=== PATIENT | male | born 1985 | race Caucasian/White ===

== ENCOUNTER 2019-09-05 12:37 | Emergency (ER) | payer SELFPAY ==
[~2019-09-05] VITALS: Ht 175.3 cm; Wt 101.6 kg
[~2019-09-05 12:37] MED LIST: AMOX600S8 PO; DEXAMETHASONE PO; FEXO30TA PO; HYDR473S16 PO; TETRACAINE LOLLIPOPS
--- NOTE | 2019-09-05 12:53 | ED Upper Extremity ---
General Chief Complaint: Upper Extremity Stated Complaint: L HAND FINGER INJ Source: patient Exam Limitations: no limitations History of Present Illness Date Seen by Provider: Sep 05, 2019 Time Seen by Provider: 12:52 Initial Comments Patient daughter slammed the pinky finger into a door, tetanus is up-to-date, there is a nail avulsion Onset: just prior to arrival Severity: moderate Pain/Injury Location: left 5th finger Method of Injury: direct blow Modifying Factors: Worse With Movement Allergies and Home Medications Allergies Coded Allergies: No Known Drug Allergies (Unverified , 03/05/13) Home Medications Amoxicillin/Potassium Clav 600 Mg/5 Ml Susp, 1 TSP PO BID, (Reported) Cephalexin 500 Mg Capsule, 500 MG PO TID Prescribed by: JOSEPH CASE on 09/05/19 1319 Fexofenadine Hcl 30 Mg Tab.rapdis, 1 EA PO BID, (Reported) Hydrocodone Bit/Acetaminophen 480 Ml Solution, 3 TSP PO Q4HR PRN, (Reported) Hydrocodone/Acetaminophen 1 Each Tablet, 1 TAB PO Q4-6HR Prescribed by: JOSEPH CASE on 09/05/19 131 [Dexamethasone] , 2.5 TSP PO DAILY, (Reported) Patient Home Medication List Home Medication List Reviewed: Yes Review of Systems Constitutional: see HPI EENTM: see HPI Respiratory: no symptoms reported Cardiovascular: no symptoms reported Genitourinary: no symptoms reported Musculoskeletal: see HPI Skin: no symptoms reported Psychiatric/Neurological: No Symptoms Reported Past Rpyanht-Kfpyad-Gicirj Hx Past Medical History Reproductive Disorders: No Physical Exam Vital Signs Vital Signs - First Documented 09/05/19 12:40 Temp 36.8 Pulse 69 Resp 17 B/P (MAP) 130/83 (99) Pulse Ox 99 O2 Delivery Room Air Capillary Refill : Height, Weight, BMI Height: '" Weight: 213lbs. oz. 96.797004dc; BMI Method: General Appearance: WD/WN, no apparent distress HEENT: PERRL/EOMI, normal ENT inspection Respiratory: no respiratory distress, no accessory muscle use Shoulder: normal inspection, non-tender Elbow/Forearm: normal inspection, non-tender Wrist: Yes normal inspection, Yes non-tender Hand: Left, laceration (there is a nail avulsion with nail bed laceration) Neurologic/Tendon: normal sensation, normal motor functions Neurologic/Psychiatric: alert, normal mood/affect, oriented x 3 Skin: normal color, warm/dry Progress/Results/Core Measures Results/Orders My Orders Orders - JOSEPH CASE APRN Lidocaine 1% Inj 20 Ml (Xylocaine 1% Inj (09/05/19 13:00) Cephalexin Capsule (Keflex Capsule) (09/05/19 13:00) Medications Given in ED Current Medications Medications Dose Ordered Sig/Marjorie Route Start Time Stop Time Status Last Admin Dose Admin Cephalexin HCl 500 mg ONCE ONCE PO 09/05/19 13:00 09/05/19 13:01 DC 09/05/19 12:59 500 MG Lidocaine HCl 2 ml ONCE ONCE INJ 09/05/19 13:00 09/05/19 13:01 DC 09/05/19 13:01 2 ML Vital Signs/I&O 09/05/19 09/05/19 12:40 13:35 Temp 36.8 36.8 Pulse 69 74 Resp 17 18 B/P (MAP) 130/83 (99) 130/83 (99) Pulse Ox 99 99 O2 Delivery Room Air Room Air Departure Communication (Admissions) 1315-procedure note: Digital block was done using 3 mL of 1% lidocaine without epinephrine, tourniquet was then applied for hemostasis. The nailbed laceration was then covered with glue. The proximal nail fold was then splinted with a fingernail shaped piece of oral from suture material packet. This was held in place with 2 simple interrupted sutures size 5-0 Prolene. Xeroform was then applied and tube gauze then applied. I discussed with him that x-ray imaging could be skipped in an attempt to save cost, a fractured phalanx will not mold insert changer. Impression Primary Impression: Nailbed laceration, finger Additional Impression: Nail avulsion Disposition: HOME, SELF-CARE Condition: Stable Departure-Patient Inst. Decision time for Depature: 13:16 Referrals: YAMILKA WOODSON MD (PCP) Primary Care Physician Patient Instructions: NAIL INJURY, Nail Avulsion Add. Discharge Instructions: 1. Pain medication and antibiotics as directed. Leave this dressing in place on for the rest of today, taken off tomorrow evening by gently pulling on it. Try not to pull the foil fingernail splint off. Tomorrow evening you can wrap this with a simple Band-Aid and then applied a metal splint provided. Return to ER in about 5-7 days to have the splint removed. All discharge instructions reviewed with patient and/or family. Voiced understanding. Scripts Hydrocodone/Acetaminophen (HYDROcodone/APAP 5 MG/325 MG TAB) 1 Each Tablet 1 TAB PO Q4-6HR for Pain MDD 10 TABS for 7 Days, #10 TAB Prov: JOSEPH CASE APRN 09/05/19 Cephalexin (Keflex) 500 Mg Capsule 500 MG PO TID, #15 CAP Prov: JOSEPH CASE APRN 09/05/19 JOSEPH CASE APRN Sep 05, 2019 12:53
[2019-09-05] MEDS ORDERED: CEPHALEXIN 250 MG (KEFLEX) CAP PO ONE (13:00)
[2019-09-05] MEDS ORDERED: LIDOCAINE 1% INJ 20 ML 20 ML VIAL INJ ONE (13:00)
[2019-09-05] MEDS ORDERED: CEPH-507 PO (13:19)
[2019-09-05] MEDS ORDERED: HYDR-4226 PO (13:19)
[2019-09-05 13:35] VITALS: BP 130/83
== END 2019-09-05 13:35 | disposition home or self-care (01) ==
LOC: EDUNIT# 12:37 → ER 12:38
DX: S61.317A Laceration without foreign body of left little finger with damage to nail, initial encounter (principal); W22.8XXA Striking against or struck by other objects, initial encounter
CPT/HCPCS: 12001; 29130

== ENCOUNTER 2019-09-14 16:17 | Emergency (ER) | payer SELFPAY ==
[~2019-09-14] VITALS: Ht 175 cm; Wt 101.0 kg
[~2019-09-14 16:17] MED LIST changes: +CEPH-507 PO; +HYDR-4226 PO
[2019-09-14 16:46] VITALS: BP 0/0
--- NOTE | 2019-09-14 16:46 | NUR ---
PT DISCHARGED TO HOME W/ NO QUESTIONS.
== END 2019-09-14 16:46 | disposition home or self-care (01) ==
LOC: EDUNIT# 16:17 → ER 16:20
DX: S61.217D Laceration without foreign body of left little finger without damage to nail, subsequent encounter (principal); X58.XXXD Exposure to other specified factors, subsequent encounter

== ENCOUNTER 2020-11-04 05:40 | Outpatient (CLI) | payer SELFPAY ==
[~2020-11-04] VITALS: Ht 177.8 cm; Wt 104.9 kg
[2020-11-04] MEDS ORDERED: TADA10TA14 PO (09:42)
[2020-11-04] MEDS ORDERED: HYDR-3584 PO (09:42)
[2020-11-04] MEDS ORDERED: BUPR-42 PO (09:42)
[2020-11-05] MEDS ORDERED: HYDR-3817 PO (09:50)
== END 2020-11-04 10:00 | disposition home or self-care (01) ==
LOC: PREOP 05:40
PROVIDERS: ATTEND Surgery
DX: Z01.818 Encounter for other preprocedural examination (principal)

== ENCOUNTER 2020-11-05 09:09 | Day surgery (SDC) | payer OTHER ==
[~2020-11-05] VITALS: Ht 177.8 cm; Wt 104.9 kg
[2020-11-05] VITALS (10 sets, daily range): BP systolic 110–139; BP diastolic 57–79
[~2020-11-05 09:09] MED LIST changes: +BUPR-42 PO; +HYDR-3584 PO; +TADA10TA14 PO
[2020-11-05] MEDS ORDERED: ceFAZolin 2 GM IV Premixed 50 ML IV ONE (09:30)
[2020-11-05] MEDS ORDERED: LACTATED RINGERS 1,000 ML IV PRN (09:30)
--- NOTE | 2020-11-05 09:48 | Progress Note-Pre Operative ---
Pre-Operative Progress Note H&P Reviewed The H&P was reviewed, patient examined and no changes noted. Date Seen by Provider: November 05, 2020 Time Seen by Provider: 09:45 Date H&P Reviewed: November 05, 2020 Time H&P Reviewed: 09:40 Pre-Operative Diagnosis: Perianal abscess, possible fistula ALINA THOMAS APRN November 05, 2020 09:48
[2020-11-05] MEDS ORDERED: HYDR-3817 PO (09:50)
--- NOTE | 2020-11-05 09:51 | Discharge Inst-Surgical ---
D/C Lap Instructions-KIDO Reconcile Patient Problems Problems Reviewed?: Yes New, Converted, or Re-Newed RX: RX on Chart Follow Up Appt in 2 weeks Activity as tolerated No driving for 24 hours No driving while on pain medications Incentive Spirometry use every 2 hours while awake Regular Diet Symptoms to Report: Fever over 101 degree F, Nausea/Vomiting Infection Signs and Symptoms to report: Increased redness, Foul odor of wound, Increased drainage Bathing instructions: May shower Operative Area Clean/Dry; Keep incision clean/dry If any problems/questions: Contact your physician or go to Emergency Room ALINA THOMAS APRN November 05, 2020 09:50
[2020-11-05] MEDS ORDERED: ONDANSETRON 4 MG/2 ML (SDV) Z0FRAN IVP PRN (10:00)
[2020-11-05] MEDS ORDERED: ACETAMINOPHEN 325 MG TABLET PO PRN (10:00)
[2020-11-05] MEDS ORDERED: HYDROcodone/APAP 5 MG/325 MG (LORTAB) TAB PO ONE (10:00)
[2020-11-05] MEDS ORDERED: morphine INJ 10 MG/ML 1ML (SYR OR VIAL) IVP PRN (10:00)
[2020-11-05] MEDS ORDERED: LIDOCAINE PF 2% 5 ML (XYLOCAINE) VIAL ONE (10:49)
[2020-11-05] MEDS ORDERED: fentaNYL INJ 100 MCG/2 ML AMP ONE (10:49)
[2020-11-05] MEDS ORDERED: ONDANSETRON 4 MG/2 ML (SDV) Z0FRAN ONE (10:49)
[2020-11-05] MEDS ORDERED: proPOfol 200 MG/20 ML (DIPRIVAN) VIAL IV ONE (10:49)
[2020-11-05] MEDS ORDERED: MIDAZOLAM 2 MG/2 ML (VERSED) VIAL ONE (10:49)
[2020-11-05] MEDS ORDERED: SEVOFLURANE (ULTANE) 15 ML INHAL SOLN ONE ×4 (10:50→12:00)
[2020-11-05] MEDS ORDERED: LIDOCAINE/EPI 1%-1:100,000 (XYLOCAINE) 20ML ONE ×2 (11:08→11:09)
--- NOTE | 2020-11-05 12:07 | Progress Note-Post Operative ---
Post-Operative Progess Note Surgeon (s)/Cloth Tearer (s) Surgeon TAMAR GUTIERREZ MD Cloth Tearer: ama johnson Pre-Operative Diagnosis Perianal abscess, possible fistula Post-Operative Diagnosis superficial left lateral fistula Procedure & Operative Findings Date of Procedure 11/05/20 Procedure Performed/Findings anal exam under anesthesia, fistulotomy Anesthesia Type general LMA Estimated Blood Loss Estimated blood loss (mL): minimal Specimens/Packing Specimens Removed none TAMAR GUTIERREZ MD November 05, 2020 12:07
--- NOTE | 2020-11-05 12:58 | Anesthesia-General Post-Op ---
General Patient Condition Mental Status/LOC: Same as Preop Cardiovascular: Satisfactory Nausea/Vomiting: Absent Respiratory: Satisfactory Pain: Controlled Complications: Absent Post Op Complications Complications None Follow Up Care/Instructions Patient Instructions None needed. Anesthesia/Patient Condition Patient Condition Patient is doing well, no complaints, stable vital signs, no apparent adverse anesthesia problems. No complications reported per nursing. RAMY ALBERTO CRNA November 05, 2020 12:57
--- NOTE | 2020-11-05 19:19 | OPERATIVE REPORT ---
DATE OF SERVICE: 11/05/2020 ATTENDING PRIMARY CARE PHYSICIAN: Sole Garcia MD PREOPERATIVE DIAGNOSIS: Recurrent and persistent perianal abscess, likely indicating anal fistula. POSTOPERATIVE DIAGNOSIS: Left lateral superficial perianal fistula, not encompassing the sphincter muscles. PROCEDURE: Anal exam under anesthesia, pudendal nerve block, fistulotomy. SURGEON: Tamar Gutierrez MD FAMILY ASSISTANT: Griffin Saxena APRN. ANESTHESIA: General laryngeal mask airway with local and pudendal nerve block. ESTIMATED BLOOD LOSS: Minimal. FINDINGS: Left lateral superficial perianal fistula, not encompassing the sphincter muscles. DISPOSITION: The patient tolerated the procedure well. INDICATIONS: The patient is a 34-year-old male who has had a three-year history of recurrent pain, swelling and drainage in the left lateral perianal region. He reports that he would develop swelling, redness and pain and would see the lesion and then eventually the lesion would spontaneously drain and heal, and the cycle would continue to reoccur. He reports that this has been occurring for three years. He was seen in the office and found to have what appeared to be a chronic opening in the left lateral portion of the anus, likely consistent with a fistula. He reports he did have a colonoscopy before in the past and there were no inflammatory changes identified that would indicate an inflammatory bowel disease. He does not report any abdominal pain as well as no rectal bleeding. DESCRIPTION OF PROCEDURE: The patient was brought to the operating room, laid supine on the table. After adequate IV pain and sedative medications and general laryngeal mask airway intubation, the patient was placed in lithotomy position and the perineum was prepped and draped in standard surgical fashion. We then proceeded with a pudendal nerve block bilaterally approximately 1 cm below the ischial tuberosity with a 1% lidocaine with epinephrine along the anal sphincters to relax. A speculum was then placed and circumferentially examined. The probe was then inserted into the external opening of the tract and this opening was around the level near the cryptoglandular Z line. This appeared to be superficial and did not encompass any of the external or internal sphincter muscles. We then proceeded with a fistulotomy over the probe using electrocautery with visualization of good hemostasis. The hardened skin along the external opening was also excised using a 15 blade. Good hemostasis was observed. We then proceeded to place a hemostatic plug made of Gelfoam and Surgicel covered and Surgilube. This was then followed by 4 x 4 gauze followed by ABD pad and mesh shorts. The patient tolerated the procedure well. He will be instructed to remove the remainder of the packing with his first bowel movement and to proceed with Sitz baths on a q.i.d. basis as well as after every bowel movement. We will also recommend proceeding with incorporation of a fiber supplement to make his stools are soft as possible as well as drink adequate amounts of water. We will have him follow up in office approximately two weeks. Job ID: [id number] DocumentID: [id number] Dictated Date: 11/05/2020 12:15:19 Clothes Wringer Date: 11/05/2020 19:18:36 Dictated By: TAMAR GUTIERREZ MD
== END 2020-11-05 14:00 ==
LOC: SDC 09:09
PROVIDERS: ATTEND Surgery
DX: K60.5 Anorectal fistula (principal); K21.9 Gastro-esophageal reflux disease without esophagitis; F32.9 Major depressive disorder, single episode, unspecified; Z90.89 Acquired absence of other organs; Z79.899 Other long term (current) drug therapy; Z87.891 Personal history of nicotine dependence; Z83.3 Family history of diabetes mellitus; Z82.49 Family history of ischemic heart disease and other diseases of the circulatory system
CPT/HCPCS: 87081